=== PATIENT | female | born 1955 ===

== ENCOUNTER 2019-05-22 15:49 | Outpatient (CLI) | payer OTHER | END 2019-05-22 16:52 | disposition home or self-care (01) | LOC: RAD 15:49 | DX: R05 Cough (principal) ==

== ENCOUNTER 2019-05-28 09:30 | Outpatient (CLI) | payer OTHER | END 2019-05-28 09:55 | disposition home or self-care (01) | LOC: EKG 09:30 | DX: I10 Essential (primary) hypertension (principal) ==